=== PATIENT | female | born 1990 | race Caucasian/White ===

== ENCOUNTER 2017-05-26 13:15 | Emergency (ER) | payer OTHER ==
[2017-05-26 14:10] VITALS: O2SAT 99
[2017-05-26] MEDS ORDERED: Sodium Chloride 0.9% 1,000 ML IV ONE (14:38)
[2017-05-26] MEDS ORDERED: Sodium Chloride 0.9% 1,000 ML ONE (14:53)
[2017-05-26 14:55] LABS: BASO % 0.3 % (0.0-2.0); EOS # 0.1 K/uL (0.0-0.7); EOS % 1.5 % (0.0-4.0); HEMATOCRIT 44.4 % (34.0-47.0); LYMPH # 1.2 K/uL (1.0-4.3); LYMPH % 13.3 % (20.0-40.0); MEAN CELL VOLUME 90.7 fL (81.0-99.0); MEAN CORPUSCULAR HEMOGLOBIN 30.7 pg (27.0-31.0); MEAN CORPUSCULAR HGB CONC 33.8 g/dL (33.0-37.0); MEAN PLATELET VOLUME 8.9 fL (7.2-11.7); MONO # 0.5 K/uL (0.0-0.8); MONO % 5.1 % (0.0-10.0); RED CELL DISTRIBUTION WIDTH 13.1 % (11.5-14.5); WHITE BLOOD COUNT 9.3 K/uL (4.8-10.8)
--- NOTE | 2017-05-26 15:22 | C.PDOC ---
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 Patient states she started her menstrual period today and has had associated vomiting and diarrhea. Patient notes she usually experiences abdominal cramping at the onset of her period, but symptoms are worse than usual today. She denies fever, chills , back pain. Time Seen by Provider: 05/26/17 14:31 Chief Complaint (Nursing): Abdominal Pain History Per: Patient History/Exam Limitations: no limitations Onset/Duration Of Symptoms: Hrs (4) Current Symptoms Are (Timing): Still Present Location Of Pain/Discomfort: Diffuse Radiation Of Pain To:: None Quality Of Discomfort: Cramping Associated Symptoms: Vomiting, Diarrhea. denies: Fever, Chills Last Bowel Movement: Today Additional History Per: Patient Last Menstral Period: 05/02/17 Past Medical History Reviewed: Historical Data, Nursing Documentation, Vital Signs Vital Signs: Last Vital Signs Temp 98.8 F 05/26/17 16:14 Pulse 64 05/26/17 16:14 Resp 18 05/26/17 16:14 BP 98/64 L 05/26/17 16:14 Pulse Ox 99 05/26/17 16:14 - Medical History PMH: No Chronic Diseases Surgical History: No Surg Hx Family History: States: Unknown Family Hx - Social History Hx Tobacco Use: No Hx Alcohol Use: No Hx Substance Use: No - Immunization History Hx Tetanus Toxoid Vaccination: No Hx Influenza Vaccination: No Hx Pneumococcal Vaccination: No Review Of Systems Constitutional: Negative for: Fever, Chills Gastrointestinal: Positive for: Vomiting, Abdominal Pain (cramping ), Diarrhea Musculoskeletal: Negative for: Back Pain Physical Exam - Physical Exam Appears: Non-toxic, No Acute Distress, Other (in painful distress, nauseous ) Skin: Normal Color, Warm, Dry Head: Atraumatic, Normacephalic Eye(s): bilateral: Normal Inspection Oral Mucosa: Moist Neck: Supple Chest: Symmetrical Cardiovascular: Rhythm Regular Respiratory: Normal Breath Sounds Gastrointestinal/Abdominal: Soft, No Tenderness, No Guarding, No Rebound Back: Normal Inspection Extremity: Normal ROM, Capillary Refill (less than 2 seconds ) Neurological/Psych: Oriented x3, Normal Speech, Normal Cognition ED Course And Treatment - Laboratory Results Result Diagrams: 05/26/17 14:50 05/26/17 14:50 O2 Sat by Pulse Oximetry: 99 (on RA) Pulse Ox Interpretation: Normal Medical Decision Making Medical Decision Making: Impression: 26 y/o female with abdominal cramping, vomiting, diarrhea Plan : * labs * Tylenol PO * Zofran IVP * Pepcid IVP * Toradol IVP * IV Fluids * reassess and disposition Progress: labs ordered and reviewed. Patient received Tylenol PO, Zofran IVP, Pepcid IVP, Toradol IVP, and IV Fluids. Patient feeling much better Disposition - Disposition Disposition: HOME/ ROUTINE Disposition Time: 16:17 Condition: STABLE Prescriptions: Ibuprofen [Motrin] 600 mg PO TID #15 tab Ondansetron ODT [Zofran ODT] 1 odt PO BID PRN #6 odt PRN Reason: Nausea/Vomiting Instructions: Menorrhagia (ED) Forms: [facility] ([place]), General Discharge Instructions - Clinical Impression Clinical Impression: Menses painful, Vomiting - Scribe Statement The provider has reviewed the documentation as recorded by the Scribe (Jade Montana) Provider Attestation: All medical record entries made by the Scribe were at my direction and personally dictated by me. I have reviewed the chart and agree that the record accurately reflects my personal performance of the history, physical exam, medical decision making, and the department course for this patient. I have also personally directed, reviewed, and agree with the discharge instructions and disposition.
[2017-05-26 15:43] LABS: CHLORIDE 104 mmol/L (98-107)
[2017-05-26 15:44] LABS: SODIUM 140 mmol/L (132-148)
[2017-05-26 15:46] LABS: ALB/GLOB RATIO 1.3 (1.0-2.1); AST/SGOT 19 U/L (14-36); BILIRUBIN,TOTAL 0.9 mg/dL (0.2-1.3); BLOOD UREA NITROGEN 8 mg/dL (7-17); CARBON DIOXIDE 23 mmol/L (22-30); GFR AFRICAN-AMERICAN > 60; TOTAL PROTEIN 7.7 g/dL (6.3-8.3)
[2017-05-26 15:47] LABS: ALKALINE PHOSPHATASE 58 U/L (38-126); ALT/SGPT 22 U/L (9-52); CALCIUM 8.8 mg/dl (8.6-10.4); GLUCOSE,RANDOM 96 mg/dL (65-105)
[2017-05-26 16:15] VITALS: BP 98/64; PULSE 64; RESP 18; TEMP 98.8
== END 2017-05-26 16:24 | disposition home or self-care (01) ==
LOC: C.ER 13:15
DX: N94.6 Dysmenorrhea, unspecified (principal); R11.10 Vomiting, unspecified
CPT/HCPCS: 80053; 80324; 80345; 80346; 80349; 80353; 80358; 80361; 83992; 84703; 85025; 96361; 96374; 96375; 99284; J1885; J2405; J7040